=== PATIENT | female | born 1975 | race Caucasian/White ===

== ENCOUNTER 2024-10-12 07:50 | Day surgery (SDC) | payer OTHER ==
[2024-10-10 13:35] VITALS: BP 139/84; PULSE 60; RESP 18; TEMP 97.8; O2SAT 97
[~2024-10-12] VITALS: Ht 167.6 cm; Wt 79.4 kg
[2024-10-12 07:50] VITALS: BP 118/77; PULSE 64; RESP 16; TEMP 97.2; O2SAT 96
[~2024-10-12 07:50] MED LIST: ALPR1TAB6 PO; BUSP15TA PO; BUTO10SP NS; DILT240T8 PO; MELA10TA PO; ONDA-226 PO; PROG200C9 PO; PROM25TA10 PO; RIZA10TA97 PO; SCOP1PAT12 TD; TRAZ-163 PO; ZOLP10TA PO; [UNRECOGNIZED DRUG - CODE] IJ
[2024-10-12] MEDS ORDERED: CETACAINE SPRAY TP ONE (08:10)
[2024-10-12] MEDS ORDERED: DIPRIVAN IV ONE (08:11)
[2024-10-12] MEDS ORDERED: NITROGLYCERIN 25MG/D5W 250ML 250 ML IV ONE (08:25)
[2024-10-12] MEDS ORDERED: NS 1000ML 1,000 ML ONE (09:26)
[2024-10-12 09:57] VITALS: BP 119/71; PULSE 58; RESP 16; TEMP 97.9; O2SAT 94
[2024-10-12 10:12] VITALS: BP 131/69; PULSE 54; RESP 16; O2SAT 98
[2024-10-12 10:27] VITALS: BP 170/77; PULSE 50; RESP 16; O2SAT 97
[2024-10-12 10:42] VITALS: BP 129/81; PULSE 55; RESP 16; O2SAT 97
== END 2024-10-12 11:00 | disposition home or self-care (01) ==
LOC: SDC 07:50
PROVIDERS: ATTEND Internal Medicine
DX: G43.E11 Chronic migraine with aura, intractable, with status migrainosus (principal); I08.1 Rheumatic disorders of both mitral and tricuspid valves; I10 Essential (primary) hypertension; F41.9 Anxiety disorder, unspecified; Z90.710 Acquired absence of both cervix and uterus; Z98.890 Other specified postprocedural states; Z79.899 Other long term (current) drug therapy
CPT/HCPCS: 93312; 93325; 99152; J2704; J3490; J7030; C8925